=== PATIENT | female | born 1965 | race Two or more races ===

== ENCOUNTER 2017-12-10 09:50 | Outpatient (CLI) | payer OTHER ==
[~2017-12-10 09:50] MED LIST: ACTICAL SOFTGEL1 CAP PO; GAS-X125 M1 PO; HYZAAR 100-121 UDTAB PO; LEVSIN/SL0.125 MG PO; ULTRACET PO
== END 2017-12-10 10:04 | disposition home or self-care (01) ==
LOC: LAB 09:50
DX: Z86.010 Personal history of colon polyps (principal); Z85.038 Personal history of other malignant neoplasm of large intestine

== ENCOUNTER 2017-12-22 05:50 | Day surgery (SDC) | payer OTHER | END 2017-12-22 12:00 | disposition home or self-care (01) | LOC: AMB-ENDOS 05:50 | DX: D12.2 Benign neoplasm of ascending colon (principal); K63.5 Polyp of colon ==

== ENCOUNTER 2019-02-01 07:20 | Day surgery (SDC) | payer OTHER | END 2019-02-01 11:05 | disposition home or self-care (01) | LOC: AMB-ENDOS 07:20 | DX: D13.2 Benign neoplasm of duodenum (principal); K29.50 Unspecified chronic gastritis without bleeding; K44.9 Diaphragmatic hernia without obstruction or gangrene ==